=== PATIENT | female | born 1970 | race Caucasian/White ===

== ENCOUNTER 2018-04-15 19:32 | Emergency (ER) | payer OTHER ==
[~2018-04-15] VITALS: Ht 157.5 cm; Wt 62.3 kg
[2018-04-15 21:17] VITALS: BP 131/77
== END 2018-04-15 21:17 | disposition home or self-care (01) ==
LOC: ED 19:32
DX: S61.411A Laceration without foreign body of right hand, initial encounter (principal); W26.8XXA Contact with other sharp object(s), not elsewhere classified, initial encounter; Y93.E9 Activity, other interior property and clothing maintenance; Y92.009 Unspecified place in unspecified non-institutional (private) residence as the place of occurrence of the external cause; Y99.8 Other external cause status
CPT/HCPCS: J1885; J2001

== ENCOUNTER 2018-04-17 18:46 | Emergency (ER) | payer OTHER ==
[~2018-04-17] VITALS: Ht 152.4 cm; Wt 63.5 kg
[2018-04-17 19:31] VITALS: Ht 152.4 cm; Wt 63.5 kg
[2018-04-17 21:12] VITALS: BP 125/81
== END 2018-04-17 21:12 | disposition home or self-care (01) ==
LOC: ED 18:46
DX: Z48.01 Encounter for change or removal of surgical wound dressing (principal)

== ENCOUNTER 2018-12-28 16:29 | Emergency (ER) | payer SELFPAY ==
[~2018-12-28] VITALS: Ht 152.4 cm; Wt 65.3 kg
[2018-12-28 16:31] VITALS: BP 138/75; Ht 152.4 cm; Wt 65.3 kg
== END 2018-12-28 20:11 | disposition home or self-care (01) ==
LOC: ED 16:29
DX: K11.20 Sialoadenitis, unspecified (principal)